=== PATIENT | female | born 1985 | race Caucasian/White ===

== ENCOUNTER 2017-04-21 05:09 | Emergency (ER) | payer BC, OTHER ==
[2017-04-21] MEDS ORDERED: Ketorolac Tromethamine 30 MG/ML VIAL ONE (08:47)
== END 2017-04-21 09:23 | disposition home or self-care (01) ==
LOC: ERS 05:09
DX: M79.1 Myalgia (principal); J45.909 Unspecified asthma, uncomplicated
CPT/HCPCS: 81025; 96372; J1885